=== PATIENT | female | born 1990 | race Caucasian/White ===

== ENCOUNTER 2021-06-01 00:59 | Emergency (ER) | payer OTHER ==
[2021-06-01] MEDS ORDERED: Famotidine 20 MG/2 ML SDV IVPUSH ONE (01:23)
[2021-06-01] MEDS ORDERED: Ondansetron 4 MG/2 ML SDV IVPUSH ONE (01:23)
[2021-06-01] MEDS ORDERED: Sodium Chloride 0.9% 10 ML Syringe FLUSH PRN (01:23)
[2021-06-01] MEDS ORDERED: Sodium Chloride 0.9% 1,000 ML IV SCH (01:30)
[2021-06-01] MEDS ORDERED: HYDROmorphone 0.5 MG/0.5 ML Syringe IVPUSH ONE ×2 (01:44→02:26)
--- NOTE | 2021-06-01 01:44 | EDM.PDOC ---
ED HPI GENERAL MEDICAL PROBLEM - General Chief Complaint: Gastrointestinal Problem Stated Complaint: VOMITING BLOOD Time Seen by Provider: 06/01/21 01:15 Source of Information: Reports: Patient, RN Notes Reviewed - History of Present Illness INITIAL COMMENTS - FREE TEXT/NARRATIVE: 31 yr old female with onset of nausea, vomiting about 2 hrs ago. There was some bright red blood with the vomiting. She has has of similar GI problems with a lot of repetitive vomting and diarrhea in the past. Has had numerous endoscopies, most recently a few months ago and also colonoscopy. No hx of ulcer or other major findings with prior diagnostics. She was feeling well earlier today. Has had a "few drinks" this past evening. Right Upper Abdomen Pain Score (Numeric/FACES): 5 - Related Data Allergies Allergy/AdvReac Type Severity Reaction Status Date / Time cefdinir Allergy Hives Verified 06/01/21 01:16 Penicillins Allergy Hives Verified 06/01/21 01:15 Home Meds: Home Meds ALPRAZolam [Xanax] 0.5 mg PO DAILY PRN 06/01/21 [History] Hydrocodone/Acetaminophen [HYDROcodone-Acetaminophen 5-325 MG] 1 each PO Q6HR PRN #10 tab 06/01/21 [Rx] Ondansetron [Zofran ODT] 4 mg PO Q8HR PRN #10 tab.dis 06/01/21 [Rx] Venlafaxine [Venlafaxine HCl ER] 150 mg PO DAILY 06/01/21 [History] Past Medical History Gastrointestinal History: Reports: GERD Psychiatric History: Reports: Anxiety - Past Surgical History GI Surgical History: Reports: Colonoscopy, EGD Female Surgical History: Reports: LEEP Social & Family History - Tobacco Use Tobacco Use Status *Q: Former Tobacco User Used Tobacco, but Quit: Yes Month/Year Tobacco Last Used: 2017 - Alcohol Use Days Per Week of Alcohol Use: 2 Number of Drinks Per Day: 3 Total Drinks Per Week: 6 - Recreational Drug Use Recreational Drug Use: No ED ROS GENERAL - Review of Systems Review Of Systems: See Below Constitutional: Denies: Fever, Chills HEENT: Reports: No Symptoms Respiratory: Denies: Shortness of Breath, Pleuritic Chest Pain Cardiovascular: Denies: Chest Pain GI/Abdominal: Reports: Abdominal Pain, Hematemesis, Nausea, Vomiting Musculoskeletal: Reports: No Symptoms. Denies: Back Pain Skin: Reports: No Symptoms Neurological: Reports: No Symptoms ED EXAM, GI/ABD - Physical Exam Exam: See Below General Appearance: Alert, Anxious (mild) Head: Atraumatic Neck: Supple Respiratory/Chest: No Respiratory Distress, Lungs Clear, Normal Breath Sounds Cardiovascular: Regular Rate, Rhythm GI/Abdominal Exam: Soft, Tender (mild tenderness upper mid abd) Extremities: Normal Inspection, Normal Range of Motion Neurological: Alert, Oriented, No Motor/Sensory Deficits Skin Exam: Warm, Dry, Normal Color Course - Vital Signs Last Recorded V/S: Last Vital Signs Temp 97.6 F 06/01/21 01:17 Pulse 116 H 06/01/21 01:17 Resp 15 06/01/21 01:17 BP 126/84 06/01/21 01:17 Pulse Ox 98 06/01/21 01:17 - Orders/Labs/Meds Orders: Active Orders 24 hr Category Date Time Status Peripheral IV Care [RC] . DIRECTED Care 06/01/21 01:24 Active Sodium Chloride 0.9% [Normal Saline] 1,000 ml Med 06/01/21 01:30 Active IV ONETIME Sodium Chloride 0.9% [Saline Flush] Med 06/01/21 01:23 Active 10 ml FLUSH ASDIRECTED PRN Peripheral IV Insertion Adult [OM.PC] Stat Oth 06/01/21 01:23 Ordered Medication Orders Sodium Chloride (Normal Saline) 1,000 mls @ 999 mls/hr IV ONETIME MARLINE Last Admin: 06/01/21 01:38 Dose: 999 mls/hr Documented by: MARCELLUS Sodium Chloride (Sodium Chloride 0.9% 10 Ml Syringe) 10 ml FLUSH ASDIRECTED PRN PRN Reason: Keep Vein Open Last Admin: 06/01/21 01:39 Dose: 10 ml Documented by: MARCELLUS Labs: Laboratory Tests 06/01/21 06/01/21 Range/Units 01:20 01:20 WBC 8.89 (3.98-10.04) K/mm3 RBC 3.90 L (3.98-5.22) M/mm3 Hgb 13.1 (11.2-15.7) gm/dl Hct 38.0 (34.1-44.9) % MCV 97.4 H (79.4-94.8) fl MCH 33.6 H (25.6-32.2) pg MCHC 34.5 (32.2-35.5) g/dl RDW Std Deviation 41.3 (36.4-46.3) fL Plt Count 319 (182-369) K/mm3 MPV 9.8 (9.4-12.3) fl Neut % (Auto) 68.4 (34.0-71.1) % Lymph % (Auto) 26.4 (19.3-51.7) % [place] % (Auto) 2.9 L (4.7-12.5) % Eos % (Auto) 1.7 (0.7-5.8) Baso % (Auto) 0.4 (0.1-1.2) % Neut # (Auto) 6.07 (1.56-6.13) K/mm3 Lymph # (Auto) 2.35 (1.18-3.74) K/mm3 [place] # (Auto) 0.26 (0.24-0.36) K/mm3 Eos # (Auto) 0.15 (0.04-0.36) K/mm3 Baso # (Auto) 0.04 (0.01-0.08) K/mm3 Sodium 142 (136-145) mEq/L Potassium 3.8 (3.5-5.1) mEq/L Chloride 107 (98-107) mEq/L Carbon Dioxide 27 (21-32) mEq/L Anion Gap 11.8 (5-15) BUN 10 (7-18) mg/dL Creatinine 0.7 (0.55-1.02) mg/dL Est Cr Clr Drug Dosing 94.56 mL/min Estimated GFR (MDRD) > 60 (>60) mL/min BUN/Creatinine Ratio 14.3 (14-18) Glucose 105 H (70-99) mg/dL Calcium 8.4 L (8.5-10.1) mg/dL Total Bilirubin 0.2 (0.2-1.0) mg/dL AST 15 (15-37) U/L ALT 16 (14-59) U/L Alkaline Phosphatase 54 (46-116) U/L Total Protein 7.7 (6.4-8.2) g/dl Albumin 4.0 (3.4-5.0) g/dl Globulin 3.7 gm/dL Albumin/Globulin Ratio 1.1 (1-2) Lipase 459 H (73-393) U/L Meds: Medications Generic Name Dose Route Start Last Admin Trade Name Curtis PRN Reason Stop Dose Admin Sodium Chloride 1,000 mls @ 999 mls/hr 06/01/21 01:30 06/01/21 01:38 Normal Saline IV 999 mls/hr ONETIME MARLINE Administration Sodium Chloride 10 ml 06/01/21 01:23 06/01/21 01:39 Sodium Chloride 0.9% 10 Ml Syringe FLUSH 10 ml ASDIRECTED PRN Administration Keep Vein Open Discontinued Medications Generic Name Dose Route Start Last Admin Trade Name Curtis PRN Reason Stop Dose Admin Famotidine 20 mg 06/01/21 01:23 06/01/21 01:39 Famotidine 20 Mg/2 Ml Sdv IVPUSH 06/01/21 01:24 20 mg ONETIME ONE Administration Hydromorphone HCl 0.25 mg 06/01/21 01:44 06/01/21 02:03 Hydromorphone 0.5 Mg/0.5 Ml Syringe IVPUSH 06/01/21 01:45 0.25 mg ONETIME ONE Administration Hydromorphone HCl 0.25 mg 06/01/21 02:26 Hydromorphone 0.5 Mg/0.5 Ml Syringe IVPUSH 06/01/21 02:27 ONETIME ONE Ondansetron HCl 4 mg 06/01/21 01:23 06/01/21 01:39 Ondansetron 4 Mg/2 Ml Sdv IVPUSH 06/01/21 01:24 4 mg ONETIME ONE Administration Departure - Departure Time of Disposition: 02:27 Disposition: Home, Self-Care 01 Condition: Fair Clinical Impression: Hematemesis of unknown cause, Serum lipase elevation Gastritis Qualifiers: Gastritis type: unspecified gastritis Chronicity: acute Gastritis bleeding: with bleeding Qualified Code(s): K29.01 - Acute gastritis with bleeding - Discharge Information Prescriptions: Hydrocodone/Acetaminophen [HYDROcodone-Acetaminophen 5-325 MG] 1 each PO Q6HR PRN #10 tab PRN Reason: Pain Ondansetron [Zofran ODT] 4 mg PO Q8HR PRN #10 tab.dis PRN Reason: Nausea/Vomiting Referrals: PCP,Not In Area [Primary Care Provider] - Forms: ED Department Discharge Additional Instructions: Clear liquids only until this afternoon, than careful bland diet as tolerated. Avoid any further alcohol. Zofran if needed for any further nausea or vomiting. Tylenol for mild discomfort or hydrocodone if needed for more severe discomfort. See your medical provider early this next week. Return to ED as needed. Sepsis Event Note (ED) - Evaluation Sepsis Screening Result: No Definite Risk - Focused Exam Vital Signs: Vital Signs Temp Pulse Resp BP Pulse Ox 06/01/21 01:17 97.6 F 116 H 15 126/84 98 - My Orders Last 24 Hours: My Active Orders 06/01/21 01:23 Sodium Chloride 0.9% [Saline Flush] 10 ml FLUSH ASDIRECTED PRN Peripheral IV Insertion Adult [OM.PC] Stat 06/01/21 01:24 Peripheral IV Care [RC] . DIRECTED 06/01/21 01:30 Sodium Chloride 0.9% [Normal Saline] 1,000 ml IV ONETIME - Assessment/Plan Last 24 Hours: My Active Orders 06/01/21 01:23 Sodium Chloride 0.9% [Saline Flush] 10 ml FLUSH ASDIRECTED PRN Peripheral IV Insertion Adult [OM.PC] Stat 06/01/21 01:24 Peripheral IV Care [RC] . DIRECTED 06/01/21 01:30 Sodium Chloride 0.9% [Normal Saline] 1,000 ml IV ONETIME
== END 2021-06-01 02:40 | disposition home or self-care (01) ==
LOC: JD.ED 00:59
DX: K92.0 Hematemesis (principal); K29.01 Acute gastritis with bleeding; R74.8 Abnormal levels of other serum enzymes; Z88.0 Allergy status to penicillin; Z88.1 Allergy status to other antibiotic agents; Z87.891 Personal history of nicotine dependence
CPT/HCPCS: 36415; 80053; 83690; 85025; 96374; 96375; 96376; 99284; J1170; J2405; J3490; J7030